=== PATIENT | female | born 1985 | race Caucasian/White ===

== ENCOUNTER 2024-08-20 21:26 | Emergency (ER) | payer OTHER, SELFPAY ==
[2024-08-20 21:34] VITALS: BP 125/86
--- NOTE | 2024-08-20 21:58 | ED.GENMED ---
History of Present Illness
<Jarod Grubbsmarcinjanet, DO - Last Filed: 08/20/24 23:42>
General
Chief Complaint: Breathing Problem
Time Seen by Provider: 08/20/24 21:58
History of Present Illness
History of Present Illness:
TIME OF INITIAL ENCOUNTER: 10 PM
HPI: Had Holter x 2wks ([facility], Dr. Beltran) due to shortness of breath, lightheadedness and chest tightness. Earlier today, she was told that the recent Holter showed VT. it was suggested that she start a beta-wang however it was recommended she
speak to her [employer] doctor�her [employer] OPERATOR is not affiliated with [facility] nor [facility]. They were planning on having her see an cottage attendant. Tonight, chest tightness and SOB that she had intermittently has become constant. She also states that
her brother has a history of HOCM and mother was diagnosed with heart failure around the age of 40.
EXAM:
GENERAL: Well appearing in no distress
HEENT: Moist oral mucosa
CARDIOVASCULAR: No murmurs, normal heart rate, regular rhythm, No chest wall tenderness
PULMONARY: No respiratory distress, breath sounds are clear and equal
ABDOMEN: Soft with no peritoneal signs, no tenderness
NEUROLOGIC: Excellent strength all extremities, no coordination deficits
PSYCHIATRIC: Appropriate mental status, normal insight and judgement
EXTREMITIES: Nontender, no edema, moves all extremities equally
SKIN: No rash, no lesions
NUMBER AND COMPLEXITY OF PROBLEMS ADDRESSED AT THE ENCOUNTER
� Chronic conditions affecting care: No significant past medical history
� Acute Exacerbation and/or Progression of Chronic Illness: This is an acute problem
� Differential Diagnosis includes: Atrial dysrhythmia, ventricular dysrhythmia, ACS, anxiety, thyroid disease, electrolyte [place]
AMOUNT AND/OR COMPLEXITY OF DATA TO BE REVIEWED AND ANALYZED
� I performed an independent evaluation of and my interpretation is:
EKG: Sinus 86, normal axis, septal Q waves, no old to compare
CT:
X-rays:
Laboratory Studies: White count 9.6, hemoglobin 11.9, chemistries unremarkable however magnesium is low normal at 1.6.
Other:
� Review of other/old records: No old records available for review in [facility]
� Clinical information was obtained by an independent historian: Spoke to friend at bedside
� Prescriptions/Medications Considered but not given:
� Further testing considered but not performed: Consider chest x-ray however the lungs are clear and she is in no respiratory distress
RISK OF COMPLICATIONS AND/OR MORBIDITY OR MORTALITY OF PATIENT MANAGEMENT
� Social determinants of health affecting care: Lives at home
� Discussion with other providers: I spoke to security professional at [facility] who confirms the patient had 4 runs of nonsustained VT longest of which lasted 12 beats. It was recommended that she follows up with her [employer]OT[employer]LL R[employer] OPERATOR to discuss
using a beta-wang and they were in the process of trying to get her in to see an cottage attendant.
� Escalation of care including admission/observation vs risk of discharge considered: Throughout her stay in the emergency department, she has primarily remained in a normal sinus rhythm. Although she is , I have
relatively low suspicion for PE as her room air sats are 100% and she has nonlabored breathing.
ANY OTHER UPDATES:
11:35 PM: Resting comfortably. No episodes of ventricular dysrhythmia throughout the stay in the emergency department. Lab work reassuring. I had patient walk around her room and after exertion, room air sats remained 97 to 98%.
Phy Exam
<ST ParkerPA - Last Filed: 08/20/24 23:36>
Physical Exam
Physical Exam:
see HPI
Course
<Jarod Ramires DO - Last Filed: 08/20/24 23:42>
Orders/Labs/Results
Orders:
Orders
08/20/24 21:27
EKG [Electrocardiogram (*1)] Urgent
Reason for Study: Shortness of Breath
08/20/24 21:28
EKG- Treatment ONCE
08/20/24 22:07
Basic Metabolic Panel Urgent
Complete Blood Count/With Diff Urgent
Magnesium Urgent
TSH Reflex To Free T4 Urgent
08/20/24 22:31
NT-proBNP Urgent
Troponin I Urgent
Abnormal Lab Results
08/20/24
22:07
RBC 4.16 L 10^6/uL
(4.20-5.40)
Hgb 11.9 L g/dL
(12.0-16.0)
Hct 35.3 L %
(37.0-47.0)
Abs Immat Gran (auto) 0.1 H 10^3/uL
(0-0.05)
Absolute Monos (auto) 0.7 H 10^3/uL
(0.1-0.6)
Creatinine 0.5 L mg/dL
(0.6-1.0)
Calcium 10.3 H mg/dl
(8.4-10.2)
08/20/24 22:07
08/20/24 22:07
Vital Signs
Initial and Last Documented VS:
Initial Vital Signs
Temp Pulse Resp BP Pulse Ox
97.8 F 95 16 125/86 100
08/20/24 21:34 08/20/24 21:34 08/20/24 21:34 08/20/24 21:34 08/20/24 21:34
Last Documented Vital Signs
Temp Pulse Resp BP Pulse Ox
97.8 F 99 21 125/86 98
08/20/24 21:34 08/20/24 22:04 08/20/24 22:04 08/20/24 21:34 08/20/24 22:04
Staceylt;KUMAR Canales - Last Filed: 08/20/24 23:36>
Orders/Labs/Results
Orders:
Orders
08/20/24 21:27
EKG [Electrocardiogram (*1)] Urgent
Reason for Study: Shortness of Breath
08/20/24 21:28
EKG- Treatment ONCE
08/20/24 22:07
Basic Metabolic Panel Urgent
Complete Blood Count/With Diff Urgent
Magnesium Urgent
TSH Reflex To Free T4 Urgent
08/20/24 22:31
NT-proBNP Urgent
Troponin I Urgent
Abnormal Lab Results
08/20/24
22:07
RBC 4.16 L 10^6/uL
(4.20-5.40)
Hgb 11.9 L g/dL
(12.0-16.0)
Hct 35.3 L %
(37.0-47.0)
Abs Immat Gran (auto) 0.1 H 10^3/uL
(0-0.05)
Absolute Monos (auto) 0.7 H 10^3/uL
(0.1-0.6)
Creatinine 0.5 L mg/dL
(0.6-1.0)
Calcium 10.3 H mg/dl
(8.4-10.2)
08/20/24 22:07
08/20/24 22:07
Vital Signs
Initial and Last Documented VS:
Initial Vital Signs
Temp Pulse Resp BP Pulse Ox
97.8 F 95 16 125/86 100
08/20/24 21:34 08/20/24 21:34 08/20/24 21:34 08/20/24 21:34 08/20/24 21:34
Last Documented Vital Signs
Temp Pulse Resp BP Pulse Ox
97.8 F 99 21 125/86 98
08/20/24 21:34 08/20/24 22:04 08/20/24 22:04 08/20/24 21:34 08/20/24 22:04
<KUMAR Canales - Last Filed: 08/20/24 23:36>
*Critical Care Note
Total Time (30-74mins, 75-104mins- exclusive of procedures): Not Applicable
ED Attending Note
<Jarod Ramires DO - Last Filed: 08/20/24 23:42>
-
Portions of this chart may have been created with voice recognition software.� Occasional wrong word or��sound alike� substitutions may have occurred due to the inherent limitations of voice recognition software.
Discharge Plan
Departure
Patient Disposition: Home (Routine Discharge)
Date of Disposition: 08/20/24
Time of Disposition: 23:33
Patient with high blood pressure during this ER visit?: Yes
Discharge Problem:
Shortness of breath
Instructions: Shortness of Breath (Dyspnea) (DC), BLOOD PRESSURE
Prescriptions:
No Action
1 tab PO DAILY
Singulair
10 mg PO HS
Zyrtec
10 mg PO DAILY
Referrals:
John Sargent MD [Family Provider] -
Activity Restrictions/Additional Instructions:
I spoke to one of the cardiology fellows at [facility]. He told me that you had 4 runs of nonsustained ventricular tachycardia�the longest of which lasted 12 beats. It was recommend that you start a beta-wang such as metoprolol/Toprol but they wanted
to speak to your [employer] O[employer] doctor first to see if they are in agreement with using this medication. They are also trying to get you into see an cottage attendant as well. Basic blood work including your electrolytes were normal however your
magnesium level was at the lower end of normal with a level of 1.6. I recommend eating foods that are higher in magnesium such as fruits, nuts, beans, and eggs. Your cardiac blood work shows no sign of heart attack and no sign of heart failure.
Thyroid level is normal.
Interventions
Interventions:
*Risk Screen - Suicide Last Done: 08/20/24 21:34
*General Assessment Last Done: 08/20/24 21:34
*Neglect/Abuse Screening Last Done: 08/20/24 21:34
ED- Fall Risk Assessment Last Done: 08/20/24 23:36
*ED COVID-19 Vaccine History Last Done: 08/20/24 21:57
ED- Cardiac Assessment Last Done: 08/20/24 23:36
ED- Pulmonary Assessment Last Done: 08/20/24 23:36
Discharge Date and Time
Print Language: HEBREW
[2024-08-20 22:23] LABS: % Basophils 0.3 % (0-2); % Immature Granulocytes 0.5 % (0-0.5); % Lymphocytes 27.9 % (20.5-51.1); % Neutrophils 64.3 % (42.2-75.2); Absolute Immature Granulocytes 0.1 10^3/uL (0-0.05); Absolute Lymphocytes 2.7 10^3/uL (1.2-3.4); Absolute Monocytes 0.7 10^3/uL (0.1-0.6); Absolute Neutrophils 6.2 10^3/uL (1.4-6.5); Hematocrit 35.3 % (37.0-47.0); Hemoglobin 11.9 g/dL (12.0-16.0); Mean Corp Hgb Conc. 33.7 g/dL (33.0-37.0); Mean Corpuscular Hgb 28.6 pg (27.0-31.0); Mean Corpuscular Volume 84.9 fL (81.0-99.0); Nucleated Red Blood Cells % 0 %; Platelet Count 207 10^3/uL (130-400); Red Blood Cell Count 4.16 10^6/uL (4.20-5.40); Red Cell Dist. Width 14.2 % (11.5-14.5); White Blood Cell Count 9.6 10^3/uL (4.8-10.8)
[2024-08-20 22:35] LABS: Blood Urea Nitrogen 12 mg/dl (7-17); Calcium 10.3 mg/dl (8.4-10.2); Carbon Dioxide 22 mmol/L (22-30); Chloride 105 mmol/L (98-107); Glucose 88 mg/dl (70-99); Magnesium 1.6 mg/dl (1.6-2.3); Sodium 139 mmol/L (135-145); eGFR > 60.00
[2024-08-20 23:14] LABS: NT-proBNP < 20.0 pg/ml; Troponin I < 0.012 ng/ml
[2024-08-20 23:25] LABS: TSH Reflex To Free T4 2.65 uIU/ml (0.47-4.68)
== END 2024-08-21 00:02 | disposition home or self-care (01) ==
LOC: EMR 21:26
PROVIDERS: EMERGENCY PHYSICIAN Emergency Medicine; FAMILY PHYSICIAN Student in an Organized Health Care Education/Training Program
DX: O26.892 Other specified pregnancy related conditions, second trimester (principal); R06.02 Shortness of breath; R07.89 Other chest pain; Z82.49 Family history of ischemic heart disease and other diseases of the circulatory system; Z3A.15 15 weeks gestation of pregnancy
CPT/HCPCS: 99284; 80048; 83735; 83880; 84443; 84484; 85025; 93005